=== PATIENT | male | born 1985 | race Caucasian/White ===

== ENCOUNTER 2016-10-11 | Emergency (ER) | payer OTHER | END 2016-10-11 17:32 | disposition home or self-care (01) ==

== ENCOUNTER 2021-08-10 17:52 | Outpatient (CLI) | payer OTHER | END 2021-08-10 17:53 | disposition critical access hospital (66) | LOC: EMS 17:52 | DX: M54.50 Low back pain, unspecified (principal) | CPT/HCPCS: A0425; A0429 ==

== ENCOUNTER 2021-08-10 18:11 | Emergency (ER) | payer OTHER ==
[2021-08-10] MEDS ORDERED: HYDROmorphone 1 MG/ML CARPUJECT IM STA (19:01)
--- NOTE | 2021-08-10 19:04 | ED Physician Documentation ---
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 Reports that he has intermittently had low back pain but was going to sit in a chair this evening when suddenly his low back seized up. He reports he is unable to stand up straight and could walk only with assistance. Pain remained across the low back but did not radiate. No saddle anesthesia or loss of bowel or bladder function. No personal history of blood clots or cancer. No history of injection drug use. No recent night sweats or weight loss. No paresthesias in the lower legs. He has not taken anything for pain. Review of Systems Constitutional: denies: Fever, Chills Eyes: reports: Loss of vision Ears: reports: Reviewed and negative Cardiac: reports: Reviewed and negative Respiratory: reports: Reviewed and negative GI: reports: Reviewed and negative : reports: Reviewed and negative Skin: reports: Reviewed and negative Musculoskeletal: reports: Back pain Neurologic: reports: Reviewed and negative PD PAST MEDICAL HISTORY - Past Medical History Past Medical History: Yes - Past Surgical History Past Surgical History: No - Present Medications Home Medications: Ambulatory Orders Medication Instructions Recorded Confirmed HYDROcod/ACETAM 5/325 [[place] 5/325] 1 tablet PO BID PRN #10 tablet 08/10/21 methocarbamoL [Methocarbamol] 750 mg PO BID PRN #15 tablet 08/10/21 - Allergies Allergies/Adverse Reactions: Allergies Allergy/AdvReac Type Severity Reaction Status Date / Time No Known Drug Allergies Allergy Verified 10/11/16 15:53 - Social History Does the pt smoke?: No Smoking Status: Never smoker Does the pt drink ETOH?: Yes Does the pt have substance abuse?: No - Immunizations Immunizations are current?: Yes PD ED PE EXPANDED - General General: Alert, In Pain - Cardiac Cardiac: Regular Rate, Radial strong equal, Cap refill < 2 sec - Respiratory Respiratory: Clear to ausultation carlos. No: Distress, Labored - Abdomen Abdomen: Normal Bowel sounds. No: Tender to palpation - Back Back: Soft tissue tenderness (Diffuse soft tissue tenderness across the lower lumbar spine. No midline spinous process tenderness elicited. Reduced forward flexion secondary to pain. No paresthesias lower extremities. 3+ hyperreflexic patellar bilaterally. Motor strength 5 of 5 bilateral lower extremities.). No: Vertebral tenderness, CVA TTP right, CVA TTP left - Derm Derm: Normal color, Warm and dry. No: Rash - Extremities Extremities: Normal. No: Deformity, Tenderness - Neuro Neuro: Alert and Oriented X 3, CNII-XII intact - GCS Eye Opening: Spontaneous Motor: Obeys Commands Verbal: Oriented Total: 15 Results - Vitals Vitals: Vital Signs - 24 hr 08/10/21 08/10/21 18:16 19:49 Temperature 36.2 C L 36.4 C L Heart Rate 64 69 Respiratory 16 16 Rate Blood Pressure 137/79 H 131/94 H O2 Saturation 100 96 Oxygen O2 Source Room air PD MEDICAL DECISION MAKING - ED course Complexity details: re-evaluated patient, d/w patient ED course: This is a well-appearing 35-year-old male here with acute low back pain after attempting to sit down. No falls or trauma. He has no red flags in his history or on exam. The back pain is reproducible with movement to and on exam. Patient was given 1 mg of Dilaudid IM here in the emergency department with marked improvement in symptoms ability to stand bear weight and ambulate with no assistance. He will follow-up with [facility] tomorrow. I am going to send a limited prescription for hydrocodone to [facility] as well as a muscle relaxer. Emergent return precautions were discussed. I am prescribing a short course of short-acting opioid pain medication for this patient. 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 I have discussed that the opioids are for short term therapy only, and will not be refilled from the ED. Departure - Departure Disposition: 01 Home, Self Care Clinical Impression: Acute low back pain Qualifiers: Back pain laterality: bilateral Sciatica presence: without sciatica Qualified Code(s): M54.50 - Low back pain, unspecified Condition: Stable Record reviewed to determine appropriate education?: Yes Instructions: ED Spasm Back No Trauma Prescriptions: methocarbamoL [Methocarbamol] 750 mg PO BID PRN #15 tablet PRN Reason: Spasms HYDROcod/ACETAM 5/325 [[place] 5/325] 1 tablet PO BID PRN #10 tablet PRN Reason: Pain Comments: Xavi you were seen today for acute low back pain. I encourage you to take 600 mg of ibuprofen with food 3 times a day. Icing your back can also be helpful. However the most important thing over the next few days is to keep moving. The moment you stop moving everything will tense up, freeze and increase your pain. I am prescribing limited amount of hydrocodone for severe pain only as well as a limited amount of methocarbamol. Please use these cautiously and not together as they may cause excessive sedation. 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 Follow-up with [facility] if back pain not markedly better in 7 to 10 days. Return sooner for fevers, numbness or tingling between your legs, loss of control of your bowel or bladder function I have sent your prescriptions electronically to [facility] in [place].
[2021-08-10] MEDS ORDERED: methocarbamoL 500 MG TABLET PO STA (19:42)
[2021-08-10 19:50] VITALS: BP 131/94
== END 2021-08-10 20:01 | disposition home or self-care (01) ==
LOC: EDUNIT# → ED 18:11
DX: M54.50 Low back pain, unspecified (principal)
CPT/HCPCS: 96372; 99283; A9270; J1170